=== PATIENT | female | born 1970 | race Caucasian/White ===

== ENCOUNTER 2018-04-18 07:56 | Inpatient (IN) | payer BC ==
[2018-04-18] MEDS ORDERED: NS 1,000 ML IV ONE (08:12)
[2018-04-18] MEDS ORDERED: METOCLOPRAMIDE 10 MG/2 ML VIAL IVP ONE (08:12)
[2018-04-18] MEDS ORDERED: KETOROLAC 30 MG/1 ML SDV IVP ONE (08:12)
[2018-04-18] MEDS ORDERED: HYDROmorphONE/DILAUDID 2 MG/ML INJ IVP ONE (08:12)
[2018-04-18] MEDS ORDERED: LORazepam 2 MG/ML INJ IVP ONE (08:12)
--- NOTE | 2018-04-18 08:17 | EDPHY ---
H & P Stated Complaint: Left sided migraine for 12 hours. Time Seen by Provider: 04/18/18 08:09 HPI/ROS: CHIEF COMPLAINT: Headache HISTORY OF PRESENT ILLNESS: The patient is a 47-year-old female who complains of left frontal headache. She states that it is severe. It is very hard to get a history from her because she is hyperventilating and panicking. She will only whisper to me that it hurts "right here" while she points to her left eyebrow. She does have photophobia. She denies history of frequent headaches or migraines. She denies trauma. She denies recent fever illness. No cancer history. She states that she felt fine yesterday before the headache began. It was gradual onset not thunderclap. No focal weakness or deficits. She felt nauseous and vomited soon after began. No neck pain. Severity: Severe Modifying factors: None REVIEW OF SYSTEMS: Constitutional: denies: chills, fever, recent illness, recent injury EENTM: denies: blurred vision, double vision, nose congestion Respiratory: denies: cough, shortness of breath Cardiac: denies: chest pain, irregular heart rate, lightheadedness, palpitations Gastrointestinal/Abdominal: denies: abdominal pain, diarrhea, nausea, vomiting, blood streaked stools Genitourinary: denies: dysuria, frequency, hematuria, pain Musculoskeletal: denies: joint pain, muscle pain Skin: denies: lesions, rash, jaundice, bruising Neurological: See HPI denies: numbness, paresthesia, tingling, dizziness, weakness Hematologic/Lymphatic: denies: blood clots, easy bleeding, easy bruising Immunologic/allergic: denies: HIV/AIDS, transplant 10 systems reviewed and negative except as noted EXAM: GENERAL: Rolling around in the bed, curled up in a ball, severe distress, hyperventilating HEAD: Atraumatic, normocephalic. EYES: Pupils equal round and reactive to light, extraocular movements intact, sclera anicteric, conjunctiva are normal. ENT: TMs normal, nares patent, oropharynx clear without exudates. Moist mucous membranes. NECK: Normal range of motion, supple without lymphadenopathy or JVD. LUNGS: Breath sounds clear to auscultation bilaterally and equal. No wheezes rales or rhonchi. HEART: Regular rate and rhythm without murmurs, rubs or gallops. ABDOMEN: Soft, nontender, normoactive bowel sounds. No guarding, no rebound. No masses appreciated. BACK: No CVA tenderness, no spinal tenderness, step-offs or deformities EXTREMITIES: Normal range of motion, no pitting or edema. No clubbing or cyanosis. NEUROLOGICAL: Cranial nerves II through XII grossly intact. Normal speech, normal gait. 5/5 strength, normal movement in all extremities, normal sensation , normal reflexes PSYCH: Appears extremely anxious SKIN: Warm, dry, normal turgor, no visible rashes or lesions. Source: Patient Exam Limitations: No limitations - Personal History Current Tetanus Diphtheria and Acellular Pertussis (TDAP): Yes - Medical/Surgical History Hx Asthma: No Hx Chronic Respiratory Disease: No Hx Diabetes: No Hx Cardiac Disease: No Hx Renal Disease: No Hx Cirrhosis: No Hx Alcoholism: No Hx HIV/AIDS: No Hx Splenectomy or Spleen Trauma: No Other PMH: Anemia - transfusion apr 2018. Thyroid ca. PCOS. Pancreatitis. - Family History Significant Family History: No pertinent family hx - Social History Smoking Status: Never smoked Alcohol Use: Sober Drug Use: None Constitutional: Initial Vital Signs Temperature (C) 37 C 04/18/18 07:59 Heart Rate 102 H 04/18/18 07:59 Respiratory Rate 18 04/18/18 07:59 Blood Pressure 137/88 H 04/18/18 07:59 O2 Sat (%) 96 04/18/18 07:59 O2 Delivery Mode Room Air Allergies/Adverse Reactions: Sulfa (Sulfonamide Antibiotics) Allergy (Verified 04/18/18 11:45) Face Swelling Home Medications: Medication Instructions Recorded Cholecalciferol Vit D3 [Vitamin D3 1,000 units PO DAILY 04/18/18 (*)] FLUoxetine [Prozac 20 MG (*)] 40 mg PO HS 04/18/18 Herbals/Supplements -Info Only 1 ea PO DAILY 04/18/18 Levothyroxine [Synthroid 137 mcg 137 mcg PO DAILY06 04/18/18 (*)] Omeprazole 40 mg PO DAILY 04/18/18 valACYclovir [Valtrex (*)] 1,000 mg PO HS 04/18/18 Medical Decision Making - Diagnostics Imaging: Discussed imaging studies w/ scallop shucker Radiologist ED Course/Re-evaluation: 10:00 a.m. the patient is feeling much better. She is much more calm. Have recent labs now that she is not hyperventilating. We discussed her CT results which are obviously concerning. I have ordered MRI and MR a venogram. I spoke with Dr. Baum from Neurosurgery. He will come to evaluate. She denies history of hypertension or trauma. Differential Diagnosis: Partial list of the Differential diagnosis considered include but were not limited to; subarachnoid, migraine, tension headache, tumor and although unlikely based on the history and physical exam, I also considered fracture, trauma, infection. Critical Care Time: Critical care time spent by me, Dr. Ordaz exclusive with this patient was the 45 minutes, exclusive of the PA time exclusive of procedures. The organ system that was at risk was neurologic and I gave medications, fluids, consultation and admission to prevent worsening of the patient's condition - Data Points Laboratory Results: Laboratory Results 04/18/18 08:15 04/18/18 09:30 Medications Given: Hydrocodone Bitart/Acetaminophen ([place] 5/325) 1 - 2 tab PO Q4HRS PRN PRN Reason: Pain, Moderate Able to Take PO Stop: 04/28/18 11:14 Last Admin: 04/19/18 12:30 Dose: 1 tab Hydromorphone HCl (Dilaudid) 0.2 - 0.4 mg IVP Q4HRS PRN PRN Reason: Pain, Severe Unable to Take PO Stop: 04/28/18 11:14 Last Admin: 04/19/18 18:47 Dose: 0.4 mg Potassium Chloride/Sodium Chloride (Ns W/ 20 Kcl/L) 1,000 mls @ 100 mls/hr IV CONT ALEKSANDRA Stop: 10/15/18 11:14 Last Admin: 04/19/18 14:55 Dose: 1,000 mls Ondansetron HCl (Zofran) 4 mg IVP Q4HRS PRN PRN Reason: Nausea/Vomiting, Can't Take PO Stop: 10/15/18 11:14 Last Admin: 04/18/18 18:39 Dose: 4 mg Discontinued Medications Dexamethasone (Decadron Injection) 4 mg IVP Q6HRS ALEKSANDRA Stop: 10/15/18 11:59 Last Admin: 04/18/18 12:30 Dose: 4 mg Diphenhydramine HCl (Benadryl Injection) 25 mg IVP EDNOW ONE Stop: 04/18/18 08:13 Last Admin: 04/18/18 08:42 Dose: 25 mg Hydromorphone HCl (Dilaudid) 1 mg IVP EDNOW ONE Stop: 04/18/18 08:13 Last Admin: 04/18/18 08:41 Dose: 1 mg Sodium Chloride (Ns) 1,000 mls @ 0 mls/hr IV ONCE ONE; Wide Open PRN Reason: Protocol Stop: 04/18/18 08:13 Last Admin: 04/18/18 08:41 Dose: 1,000 mls Levetiracetam (Keppra (Premix)) 100 mls @ 400 mls/hr IV BID [facility] Stop: 10/15/18 11:59 Last Admin: 04/19/18 08:34 Dose: 100 mls Potassium Chloride (Potassium Cl 10 Meq (Premix)) 100 mls @ 100 mls/hr IV Q1H ALEKSANDRA Stop: 04/18/18 17:29 Last Admin: 04/18/18 17:04 Dose: 100 mls Magnesium Sulfate/Dextrose (Magnesium Sulf 1 Gm (Premix)) 100 mls @ 100 mls/hr IV ONCE ONE Stop: 04/18/18 18:40 Last Admin: 04/18/18 19:05 Dose: 100 mls Ketorolac Tromethamine (Toradol) 15 mg IVP EDNOW ONE Stop: 04/18/18 08:13 Last Admin: 04/18/18 08:42 Dose: 15 mg Lorazepam (Ativan Injection) 1 mg IVP EDNOW ONE Stop: 04/18/18 08:13 Last Admin: 04/18/18 08:42 Dose: 1 mg Methylprednisolone Sodium Succinate (Solu-Medrol) 125 mg IVP Q6HRS [facility] Stop: 10/15/18 17:59 Last Admin: 04/19/18 12:30 Dose: 125 mg Metoclopramide HCl (Reglan Injection) 10 mg IVP EDNOW ONE Stop: 04/18/18 08:13 Last Admin: 04/18/18 08:42 Dose: 10 mg Potassium Chloride (Klor-Con) 10 - 40 meq PO ONCE ONE PRN Reason: Protocol Stop: 04/18/18 13:23 Last Admin: 04/18/18 14:05 Dose: Not Given Departure - Departure Disposition: [facility] Acute Clinical Impression: Intracranial hemorrhage Condition: Critical
[2018-04-18 08:28] LABS: PLATELET COUNT 325 10^3/uL (150-400)
[2018-04-18] MEDS ORDERED: IOPAMIDOL (ISOVUE 370) 100 ML BTL IV ONE (09:00)
[2018-04-18] MEDS ORDERED: HYDROCODONE/APAP 5/325 TAB PO PRN (11:15)
[2018-04-18] MEDS ORDERED: ONDANSETRON DISINTEGRATING 4 MG TAB PO PRN (11:15)
[2018-04-18] MEDS ORDERED: ACETAMINOPHEN 325 MG TAB PO PRN (11:15)
[2018-04-18] MEDS ORDERED: DEXAMETHASONE 4 MG/ML VIAL IVP SCH (12:00)
[2018-04-18] MEDS ORDERED: PROTOCOL POTASSIUM 1 DOSE MISC PRN (12:45)
[2018-04-18] MEDS ORDERED: PROTOCOL MAGNESIUM 1 DOSE IV PRN (12:45)
--- NOTE | 2018-04-18 12:45 | PDGENHP ---
History and Physical - Chief Complaint severe headache - History of Present Illness 47 yo female with h/o thyroid cancer presents to ED with severe frontal headache. She awoke with increased headache pain and it gradually got worse, now severe and localized to the left frontal region, just above her left eye. She denies vision changes or ptosis. No nausea or vomiting. No focal weakness. No fevers or chills. No weight loss. No rash. In the ED, she presented in marked distress and received IV ativan and IV dilaudid. Her pain is improved, but she is having a hard time focusing and articulating herself, likely side effects from IV meds. CT head showed intraparenchymal and SAH in multiple areas. MRI/MRA was negative for enhancing lesions or thrombosis. Neurosurgery consult was obtained. She'll be admitted to the ICU for further management. History Information - Allergies/Home Medication List Allergies/Adverse Reactions: Sulfa (Sulfonamide Antibiotics) Allergy (Verified 04/18/18 11:45) Face Swelling Home Medications: Cholecalciferol Vit D3 [Vitamin D3 (*)] 1,000 units PO DAILY 04/18/18 [Last Taken Unknown] FLUoxetine [Prozac 20 MG (*)] 40 mg PO HS 04/18/18 [Last Taken Unknown] Herbals/Supplements -Info Only 1 ea PO DAILY 04/18/18 [Last Taken Unknown] Levothyroxine [Synthroid 137 mcg (*)] 137 mcg PO DAILY06 04/18/18 [Last Taken Unknown] Omeprazole 40 mg PO DAILY 04/18/18 [Last Taken Unknown] valACYclovir [Valtrex (*)] 1,000 mg PO HS 04/18/18 [Last Taken Unknown] I have personally reviewed and updated: family history, medical history, social history, surgical history - Past Medical History Additional medical history: Anemia s/p transfusion 04/2018. PCOS. Papillary thyroid cancer. h/o pancreatitis - Surgical History Reports: no pertinent surgical hx - Family History Additional family history: Dad with CAD, CABG. Paternal GF had multiple myeloma - Social History Smoking Status: Never smoked Alcohol Use: Sober Drug Use: None Additional social history: Lives independently Review of Systems Review of Systems: ROS: 10pt was reviewed & negative except for what was stated in HPI & below Physical Exam Physical Exam: Temp Pulse Resp BP Pulse Ox 36.8 C 85 18 115/62 94 04/18/18 12:30 04/18/18 12:30 04/18/18 12:30 04/18/18 12:30 04/18/18 12:30 Constitutional: no apparent distress Eyes: PERRL Ears, Nose, Mouth, Throat: moist mucous membranes Cardiovascular: regular rate and rhythym Respiratory: no respiratory distress, clear to auscultation Gastrointestinal: normoactive bowel sounds, soft, non-tender abdomen Skin: warm Musculoskeletal: full muscle strength Neurologic: AAOx3 Psychiatric: interacting appropriately, anxious Lab Data & Imaging Review 04/18/18 10:55 04/18/18 09:30 WBC 13.27 10^3/uL (3.80-9.50) H 04/18/18 08:15 RBC 5.00 10^6/uL (4.18-5.33) 04/18/18 08:15 Hgb 15.1 g/dL (12.6-16.3) 04/18/18 08:15 Hct 43.5 % (38.0-47.0) 04/18/18 08:15 MCV 87.0 fL (81.5-99.8) 04/18/18 08:15 MCH 30.2 pg (27.9-34.1) 04/18/18 08:15 MCHC 34.7 g/dL (32.4-36.7) 04/18/18 08:15 RDW 13.2 % (11.5-15.2) 04/18/18 08:15 Plt Count 325 10^3/uL (150-400) 04/18/18 08:15 MPV 9.1 fL (8.7-11.7) 04/18/18 08:15 Neut % (Auto) 83.8 % (39.3-74.2) H 04/18/18 08:15 Lymph % (Auto) 11.5 % (15.0-45.0) L 04/18/18 08:15 [place] % (Auto) 4.2 % (4.5-13.0) L 04/18/18 08:15 Eos % (Auto) 0.0 % (0.6-7.6) L 04/18/18 08:15 Baso % (Auto) 0.2 % (0.3-1.7) L 04/18/18 08:15 Nucleat RBC Rel Count 0.0 % (0.0-0.2) 04/18/18 08:15 Absolute Neuts (auto) 11.12 10^3/uL (1.70-6.50) H 04/18/18 08:15 Absolute Lymphs (auto) 1.53 10^3/uL (1.00-3.00) 04/18/18 08:15 Absolute Monos (auto) 0.56 10^3/uL (0.30-0.80) 04/18/18 08:15 Absolute Eos (auto) 0.00 10^3/uL (0.03-0.40) L 04/18/18 08:15 Absolute Basos (auto) 0.02 10^3/uL (0.02-0.10) 04/18/18 08:15 Absolute Nucleated RBC 0.00 10^3/uL (0-0.01) 04/18/18 08:15 Immature Gran % 0.3 % (0.0-1.1) 04/18/18 08:15 Immature Gran # 0.04 10^3/uL (0.00-0.10) 04/18/18 08:15 Sodium 139 mEq/L (135-145) 04/18/18 09:30 Potassium 2.8 mEq/L (3.5-5.2) L 04/18/18 09:30 Chloride 109 mEq/L (97-110) 04/18/18 09:30 Carbon Dioxide 21 mEq/l (22-31) L 04/18/18 09:30 Anion Gap 9 mEq/L (6-14) 04/18/18 09:30 BUN 10 mg/dL (7-23) 04/18/18 09:30 Creatinine 0.4 mg/dL (0.6-1.0) L 04/18/18 09:30 Estimated GFR > 60 04/18/18 09:30 Glucose 105 mg/dL (70-100) H 04/18/18 09:30 Calcium 7.6 mg/dL (8.5-10.4) L 04/18/18 09:30 Total Bilirubin 0.7 mg/dL (0.1-1.4) 04/18/18 09:30 AST 187 IU/L (14-46) H 04/18/18 09:30 ALT 124 IU/L (9-52) H 04/18/18 09:30 Alkaline Phosphatase 105 IU/L (38-126) 04/18/18 09:30 Total Protein 5.7 g/dL (6.3-8.2) L 04/18/18 09:30 Albumin 3.3 g/dL (3.5-5.0) L 04/18/18 09:30 Beta HCG, Qual NEGATIVE 04/18/18 08:15 Assessment & Plan Assessment: Intracranial hemorrhage (Acute) - CT head showed L occipital intraperenchymal hemorrhage, multiple foci of SAH. CTA with narrowing suspicious for vasculitis. Discussed with neurosurgery team, Dr. Moreira will evaluate. No emergent surgical intervention planned, no focal neurodeficits. MRI/MRA without enhancing lesions or e/o thrombosis. -Admit to ICU for frequent neurochecks, seizure precautions -neurosurg likely to perform formal angiography in next 1-2 days -start Keppra for sz pplx Possible AIRCRAFT MAINTENANCE DIRECTOR vasculitis (Primary angiitis of AIRCRAFT MAINTENANCE DIRECTOR) - note elevated LFT's, normal renal function, no rash -send ANCA panel, VINCE, complement, HIV, esr, crp, spep -start high dose solumedrol -consider LP to evaluate for infectious causes (?VZV, CMV, etc), defer to neurology -neurology consulted, Dr. Multani will see pt, appreciate assistance -consider rheum consult Elevated LFT's - send Hepatitis studies and trend Hypokalemia - check Mag and replace per protocol Thyroid cancer - now on Levothyroxine -cont home meds once med rec completed Anemia - unclear hx, supposedly she recently had a blood transfusion, though has normal h&h upon arrival here DVT PPLX - defer pharm with ICH, SCD's Full code Dispo - admit to inpt, ICU status, anticipate >48 hrs hospitalization for ongoing management of ICH and further workup. 60 min crit care time and coordination of care with neurology, neurosurgery
[2018-04-18] MEDS: levETIRAcetam 500MG/NACL 100 ML IV SCH ×2 (13:16→20:45)
[2018-04-18] MEDS: NS W/ 20 KCl/L 1,000 ML IV SCH (13:16)
[2018-04-18] MEDS ORDERED: POTASSIUM CL 10 MEQ TAB PO ONE (13:22)
[2018-04-18] MEDS: POTASSIUM Cl (KCl) 100 ML IV SCH ×4 (14:04→17:04)
--- NOTE | 2018-04-18 14:15 | PDMN ---
Medical Necessity Medical necessity: MCG: M79 SAH non surgical- 4 days - acute SAH: 47 yr old female pt presents with severe BUTCHER MRI shows L occipital intraparenchymal hemorrhage and L cerebral SAH neuro consult pend. PMH thyroid Ca., anemia/ hx pancreatitis. anticipate > 2 MN ongoing med nec care , further monitoring, eval and tx needed
--- NOTE | 2018-04-18 14:46 | GCON ---
SECURITY THREAT ANALYST CONSULTATION REASON FOR ADMISSION: Subarachnoid hemorrhage. HISTORY OF PRESENT ILLNESS: The patient is a 47-year-old white female with a past medical history in cluding thyroid cancer. She presented to the emergency room with complaints of severe headaches. Thi s was primarily in the frontal area. She states it began and worsened in severity. There was no angelo dence of seizure or tremors. There was no change in her vision. CT scan of the brain revealed intra parenchymal and subarachnoid hemorrhages. In discussion with the patient, she is quite difficult to understand and is having trouble with verbal skills. She complains of a headache. Denies any blurre d vision or double vision. There is no cough or productive sputum. She denies any fever or night sw eats. REVIEW OF SYSTEMS: 10-point review of systems is performed and negative except for what is listed in HPI. ALLERGIES: To sulfa. PAST MEDICAL HISTORY: Again, significant for thyroid cancer, anemia, and pancreatitis. FAMILY HISTORY: Noncontributory. SOCIAL HISTORY: No history of tobacco use. No history of alcohol use, though she does use marijuana . She has lived in [place] for 4 months. Was originally from [place]. PHYSICAL EXAM: VITAL SIGNS: Blood pressure is 115/62, pulse 85, respirations 18, temperature 36.8, oxygen saturation 94% on room air. GENERAL: She is a well-developed, well-nourished 47-year-old whi te female who is resting comfortably in no acute distress. HEENT: Eyes are PERRLA, EOMI. Throat shows no erythema or tonsillar hypertrophy. NECK: Supple. N o cervical adenopathy. HEART: Regular rate and rhythm without murmurs, rubs, or gallops. LUNGS: C lear to auscultation. No wheeze or rhonchi. ABDOMEN: Soft, nontender. Bowel sounds present in all 4 quadrants. EXTREMITIES: No clubbing, cyanosis, or edema. LABORATORIES: White count is 13.2, hemoglobin 15, hematocrit 43. Platelet count is 325. Sodium 139 , potassium 3.8, chloride 109, CO2 21, BUN 10, creatinine 0.4. Glucose is 105. AST is elevated at 1 87. ALT is elevated at 124. IMAGING DATA: CT scan of the brain revealed a left occipital intraparenchymal hemorrhage. There is parietal, occipital, and temporal subarachnoid hemorrhages. Brain CTA reveals narrowing of the multi ple [place] vessels with focal right middle cerebral artery narrowing. There is no evidence of superior sagittal sinus thrombosis. Brain MRI again reveals left occipital intraparenchymal hemo rrhage, left cerebral subarachnoid hemorrhages. There is a hypoplastic left transverse sinus. No ev idence of thrombosis. Brain MRA reveals a hypoplastic left transverse sigmoid sinus, a right superio r sagittal sinus, and dominant right transverse sinuses without acute thrombosis. IMPRESSION: 1. Subarachnoid hemorrhage. Etiology was unclear, though CTA is suggestive of vasculitis. 2. Hypokalemia. 3. Elevated liver function tests. 4. History of thyroid cancer. 5. Anemia. RECOMMENDATIONS: 1. Agree with neurosurgical consult. 2. Agree with neurology consult. 3. Start Keppra. 4. Aggressive treatment with steroids. Dexamethasone is a good choice. 5. Rheumatologic workup. 6. DVT and PE prophylaxis. 7. Stress ulcer prophylaxis. 8. Consider LP. /[id number]/MODL
--- NOTE | 2018-04-18 15:11 | GCON ---
EMERGENCY ROOM CONSULTATION. CHIEF COMPLAINT: Severe headache. HISTORY OF PRESENT ILLNESS: The patient is a 47-year-old female who presented to the emergency department this morning with a severe frontal headache. She woke up with a horrible headache last night and denies any loss of consciousness. The patient denies any vision changes, nausea, vomiting or any focal weakness. CT of the head was performed which showed intraparenchymal and subarachnoid hemorrhage in multiple areas. REVIEW OF SYSTEMS: A 10-point review of systems was performed and negative aside from those mentioned in the HPI. ALLERGIES: Sulfa. HOME MEDICATIONS: Vitamin D3 1000 units p.o. daily, Prozac 40 mg p.o. at bedtime, herbal supplements, levothyroxine 137 mcg p.o. daily, omeprazole 40 mg p.o. daily. Valtrex 1000 mg p.o. at bedtime. PAST MEDICAL HISTORY: 1. Anemia. The patient recently underwent a blood transfusion. 2. PCOS. 3. Papillary thyroid cancer. 4. Pancreatitis. SURGICAL HISTORY: The patient denies any recent surgeries. FAMILY HISTORY: The patient's father had coronary artery disease with a history of coronary artery bypass graft. Paternal grandfather had multiple myeloma. There is no family history of any cerebral aneurysms. SOCIAL HISTORY: The patient has never smoked cigarettes. She does not currently drink alcohol. She denies any illicit drug use. She lives independently with her children. DIAGNOSTICS: Labs: White blood cell count 13.27, hemoglobin 15.1, hematocrit 43.5, platelet count 325. Sodium 139, potassium 2.8, BUN 10, creatinine 0.4, glucose 105, AST 187, ALT 124. Diagnostic imagin. CT of the head performed without contrast earlier this morning at 8:14 a.m. demonstrates a left occipital intraparenchymal hemorrhage with surrounding vasogenic edema and multiple foci of the left frontal, parietal, occipital and temporal subarachnoid hemorrhages. No midline shift or herniation or hydrocephalus. CTA of the head performed this morning at 0817 demonstrates narrowing of multiple [place] vessels, most prominent involving the left middle cerebral artery. Also noted in the right anterior cerebral artery and bilateral proximal posterior cerebral arteries suspicious for vasculitis. 2. More focal right middle cerebral artery narrowing is in the region of small amount of subarachnoid hemorrhage, which may represent superimposed vasospasm. 3. No evidence of aneurysm or AV malformation. 4. Patent superior sagittal sinus and transverse sinus with probable very small left transverse sinus with no evidence of superior sagittal sinus thrombosis. MRI, MRA of the brain was performed this morning at 0955 demonstrates: 1. Hypoplastic left transverse sigmoid sinus. 2. Right superior sagittal sinus and dominant right transverse sinus are patent without acute thrombosis. EXAM: VITAL SIGNS: Blood pressure is 108/50, heart rate is 83, respiratory rate 16, oxygen saturation 95% on room air, temperature is 36.6 degrees Celsius. HEENT: Head is normocephalic and atraumatic. Pupils are equal, round , and reactive to light. Full visual box by confrontation. Ears are patent. RESPIRATORY AND CARDIAC: Deferred. ABDOMEN, GENITOURINARY and RECTAL: Deferred. NEUROLOGIC: The patient is awake and alert, oriented to name, place, date, time, and situation. Memory is intact to immediate, past and current events. Speech no aphasia or dysphonia. Cranial nerves 2-12 are grossly intact. Motor: The patient has 5/5 strength in all muscle groups in bilateral upper and lower extremities to include deltoids, biceps, triceps, brachioradialis, wrist flexion and extensors, track inspecting supervisor intrinsic fingers, iliopsoas , quadriceps, hamstring, plantar flexion, dorsiflexion, EHL testing. Sensation is grossly intact to light touch throughout all dermatomal distributions in bilateral lower extremities. Reflexes, biceps, brachialis, knee jerk are 2+/4. Babinski is negative and Erwin's is negative. The patient received medications just prior to exam but the patient was still able to participate fully. ASSESSMENT/PLAN: Patient is a 47-year-old female who came into the emergency department this morning after experiencing the worst headache of her life last night. Patient did not experience any nausea or vomiting or any focal weaknesses. The patient was found to have subarachnoid hemorrhage in several locations of her brain and a CTA of the head was negative for any aneurysm or AV malformation. MRI MRA of the brain was performed which confirmed a left occipital intraparenchymal hemorrhage and the left cerebral subarachnoid hemorrhages that were seen in the CAT scan, possible vasculitis. The patient is going to be admitted under the medicine service. We recommended starting Keppra 500 mg twice daily. Neurology has been consulted and will wait to see what their recommendations are. Dr. Moreira is aware of this patient as well and may consider doing a 4-vessel angiogram in the next 1-2 days if indicated. The patient was seen and examined by myself and Dr. Santos in the emergency department today, on April 18, 2018, at 11:40 a.m. Please call Neurosurgery with any questions or concerns. /[id number]/MODL MTDD
[2018-04-18 16:08] LABS: HEPATITIS B SURFACE ANTIGEN NEGATIVE (NEGATIVE)
[2018-04-18 16:12] LABS: HEPATITIS B CORE AB IGM NEGATIVE (NEGATIVE)
[2018-04-18 16:23] LABS: HEPATITIS C ANTIBODY TOTAL NEGATIVE (NEGATIVE); HIV TYPE 1 AND 2 NEGATIVE (NEGATIVE)
--- NOTE | 2018-04-18 17:32 | ASMTCMCOM ---
CM Note CM Note Notes: Pt presented to the ED through triage for a severe left frontal headache since this morning after waking up. 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 Pt is having difficulty articulating or expressive aphasia, using her phone, or completing her thoughts but not sure if this is due to side effects of IV pain meds. Pt's PMH includes: thyroid cancer, pancreatitis, PCOS, anemia (most recent iron transfusion was 2 days ago at [facility]), had a duodenal switch in 2012. Pt's LFTs were elevated and their is question whether pt has Hx of ETOH abuse especially w/hx of pancreatitis. There was also mention of pt having chronic pain issues w/the pancreatitis flares; pt had a chronic pain MD in the past. Pt states she and her children moved to [place] from [place] this past summer/early Fall. Pt was dropped off at the ED by her 16 yr old daughter, Carolina Shahid ([phone]). Pt also has a 13 yr old son, Keith. Pt gave permission for this CM to speak to Carolina but didn't want her medical/status details provided to Carolina at this time; she only wanted Carolina to know that she is being admitted and having further testing done. Pt also states that it is okay for her children to visit her in the hospital if they want to. Spoke w/Carolina and she is aware of pt being admitted. Carolina says she wouldn't be able to visit pt today because she has to work tonight from 3:45p- 9p at [employer] ([phone]). Pt states she would not want Carolina to miss work. Carolina states she will try to keep her phone close while at work but that it is okay to call [employer] and ask for her if there is something urgent. Carolina states she would like to be updated. Pt states she has two cousins Mick and Ewa Mcbride ([phone]) who live in [place]. Pt gave permission to contact Ewa and see if she can stay w/Carolina and Keith tonevaristo or if they could stay with them. This CM called Ewa and left a voicemail. Pt did say that "if need be, Ewa can be charge." This CM attempted to discuss if she would like to appoint Ewa MDPOA or Proxy at this time but pt was unable/unwilling to give a clear designation/answer or have this conversation at this time, stating "that's unnecessary. this is silly. but if need be, Ewa should be in charge." Pt also states her best friend, Marian (c:[phone], w: [phone]) lives in [place] and wanted her contacted. Spoke w/Marian and updated her on pt's admission and status. Marian mentioned that the pt's children have a therapist locally and might be a good additional support. Pt specifically said she does not want her mother or father (who live in [place]) to be contacted or given any info at this time. But pt called her mother and updated her; pt's mother might be flying into town tomorrow. Pt recently established primary care at [facility] and was seen by Dr Lisandro Stinson. Spoke w/Marian Moeller RN Radar Systems Engineer to see if pt had listed any emergency contacts or completes any Advance Directives, MDPOA etc. and pt had provided any contacts. Neurosurgery likely to perform formal angio tomorrow or the next day. Neurology consulting for possibility of pt having had a seizure. Considering a rheumatology consult. Exact DC needs TBD. CM to follow. Date Signed: 04/18/2018 05:32 PM Electronically Signed By:Nalini Higginbotham RN
[2018-04-18] MEDS ORDERED: MAGNESIUM SULF 1 GM/DEXTROSE 100 ML IV ONE (17:41)
[2018-04-18] MEDS: HYDROmorphONE/DILAUDID 1 MG/ML INJ IVP PRN ×2 (18:32→20:23)
[2018-04-18] MEDS: methylPREDNISolone SOD SUCC 125 MG/2 ML VIAL IVP SCH (18:32)
[2018-04-18] MEDS: ONDANSETRON 4 MG/2 ML VIAL IVP PRN (18:39)
[2018-04-19] MEDS: methylPREDNISolone SOD SUCC 125 MG/2 ML VIAL IVP SCH ×3 (00:16→12:30)
--- NOTE | 2018-04-19 05:24 | GCON ---
NEUROLOGIC CONSULTATION REFERRING PHYSICIAN: Ceci Morrison MD HISTORY: The patient is a 47-year-old woman who is presenting to the hospital the day after onset of acute headache with nausea and vomiting. She said she had gone to her boyfriend's house yesterday e vening and had smoked some marijuana which she typically does perhaps twice a week. She had some sex ual activity but did not report any acute headache with sex. Driving home, she says that she experie nced a terrible headache on the left side rather abruptly. She had nausea and vomiting and has never had that happen before. She drove herself home and tried to rest, but by this morning, she was not getting better so she came to the emergency room for acute evaluation. In the emergency room, she un derwent head CT, MRI, MR angiogram of the head and CT angiogram of the head. She had evidence of mil d left subarachnoid hemorrhage mainly in the left middle cerebral artery region and left occipital ar ea of a slightly larger hemorrhage, maximum 1 cm in diameter, but no evidence of stroke on the diffus ion-weighted images. There are changes on the angiogram of vasoconstriction. There are multiple ves sels that include left middle cerebral artery and right anterior cerebral artery and bilateral proxim al posterior cerebral arteries. There is some narrowing of the right middle cerebral artery area. I t does not appear that there is any venous sinus thrombosis but just some anatomically smaller left t ransverse sinus, but patent superior sagittal sinus, transverse sinus. Her headache was severe but now is down to about 2/10 she says. She notices a little trouble with wo rd finding but not focal numbness or weakness. She is not having nausea or vomiting now. She has ne ez had anything like this before. Within the last 3 years, she had some rheumatologic evaluation ba in [place] and was told she might have had some borderline lupus changes, but we do not know tho se details. Sixteen years ago, she had HELLP syndrome during her . PAST MEDICAL HISTORY: Iron-deficiency anemia for which she gets iron transfusions and did get a puga sfusion 5 days ago. However, she has had this in the past without a problem. History of papillary t hyroid cancer, history of pancreatitis. SOCIAL HISTORY: She does not drink alcohol. She notes the marijuana use about twice per week with a little increased use lately and has smoked for several years. She denies any other illicit drug use . She lives independently but does have children and reports having a significant other. FAMILY HISTORY: Some stroke late in life with her mother. ALLERGIES: Her allergy is to sulfa. MEDICATIONS: Home medicines: Valtrex, omeprazole, Synthroid, Prozac, vitamin D. Here in the hospit al, she has been started on some methylprednisolone 125 mg every 6 hours, p.r.n. [place] or Dilaudid, K eppra 500 mg b.i.d. REVIEW OF SYSTEMS: Unremarkable except for that noted above. PHYSICAL EXAMINATION: VITAL SIGNS: The blood pressure is 115/67, pulse of 89, respirations 19, temp erature 37.5. GENERAL: She is lying in the bed, mildly uncomfortable but able to communicate effect ively. NECK: She has a supple neck. No significant pain in the head or neck by head rotation or fl exion. SKIN: No skin rash. HEENT: Eyes are clear. Oropharynx benign. NEUROLOGIC: Mildly lethar gic but able to arouse and answer questions appropriately and is oriented and understands the general situation. Pupils are 2 mm and reactive. Extraocular movements are intact. Normal facial sensatio n and strength. Occasionally, she had some word-finding difficulties but mild. Motor exam: Normal muscle bulk and tone with 5/5 strength and no abnormal movements. Sensation is preserved for tempera ture and light touch. Reflexes are 2+ and symmetric. IMAGING STUDIES: As outlined above. LABORATORY STUDIES: Sedimentation rate is 2. White count is 13. C-reactive protein less than 5. P rotein electrophoresis is pending. Total protein is mildly low. Electrolytes: Potassium of 2.8, bi carbonate 21, glucose 105, calcium 7.6, AST of 187, ALT 124. Several antibodies are pending like VINCE and complement levels. Serologies negative for hepatitis and HIV. IMPRESSION: Total unit time: 70 minutes. The patient has some subarachnoid bleeding and vasoconstr iction in multiple vessels as outlined, but this is unlikely an aneurysmal subarachnoid hemorrhage. It is nontraumatic. It occurred without a clear-cut precipitating cause. My top differential consid eration in the short term would be reversible cerebral vasoconstrictive syndrome. Cerebral vasculiti s is a differential consideration on a primary or secondary basis, but we lack any definitive markers so far. She made mention of possible lupus concerns in the last 3 years with a rheumatology consult , but we do not otherwise have specific evidence to suggest that. It is unclear why she has the elev ation of liver enzymes. Normal sedimentation rate and C-reactive protein are reassuring but do not e xclude definitively vasculitis. This syndrome has been associated with antidepressants which she vimal es as well as marijuana use, but these links are very loose at this point and simply mentioned in the literature as considerations. It is reasonable in the short-term to continue the steroid for the po ssibility of a vasculitic syndrome, but we will try to discontinue that fairly quickly if she is clin ically continuing to do well to be sure it is actually needed or not. I feel it is appropriate to ho ld off on any other specific medication interventions, and generally, literature does not support str jimmy evidence for use of calcium channel blockers, although it has been done in the past. I explained all of this to her in a general sense and the typically good prognosis, although it is quite variabl e for given individuals and something we will monitor. I will continue to follow along with you. I think it is reasonable in the short-term also to not do the catheter-based angiogram, but we will con nuclear weapons specialist that and continue to confer with Neurosurgery as appropriate. /[id number]/MODL
[2018-04-19 06:19] LABS: PLATELET COUNT 270 10^3/uL (150-400)
--- NOTE | 2018-04-19 07:31 | NEUSURGPN ---
Assessment/Plan: Assessment: 47 yo female with presentation to the ED with worst BUTCHER of life. Pt with SAH in the sulci, CTA was neg for aneurysm Plan: -SAH-neg CTA -Dr Moreira saw pt as well and we will defer to Neurology for the need to get an angio -Dr Moreira could do angio tomorrow if needed -will wait for Neurology to see and can speak with Dr Moreira to finalize plan -call with any questions or concerns -PT/OT/ST -pt understands and agrees Subjective: Awake and alert. NAD. No new events overnight. No neck/chest/abd or gu complaints. No f/c/n/v/d. Objective: AAO x 3, PERRLA/EOMI no droop CN 2-12 grossly intact +lt touch 5/5 BUE/BLE = Neuro Check Frequency: as ordered Urinary Catheter in Place: No - Physician Discussed Patient with Dr.: Moreira Patient Seen by Dr.: Moreira Neurosurgery Physical Exam - Vitals, I&O, Labs I and O 04/18/18 04/19/18 04/20/18 05:59 05:59 05:59 Intake Total 2545 Output Total 250 Balance 2295 Weight 50 kg Intake: Oral (ml) 120 IV Intake (ml) 655 IV Infused (ml) 1770 NS W/ 20 KCl/L 1,000 ml @ 770 100 mls/hr IV CONT ALEKSANDRA Rx#:[id number] Output: Urine (ml) 250 Bedpan 250 Other: Number of Voids Toilet 2 Number of Stools Toilet 1 Vital Signs Temp Pulse Resp BP Pulse Ox 36.8 C 89 27 H 119/74 95 04/18/18 22:00 04/19/18 06:00 04/19/18 06:00 04/19/18 06:00 04/19/18 06:00 Laboratory Results 04/19/18 05:50 04/19/18 05:50 ICD10 Worksheet Patient Problems: Problems Problem Status Onset Intracranial hemorrhage Acute
--- NOTE | 2018-04-19 08:20 | NEUROPROG ---
Assessment: Total unit time 25 min. At this point, the probability of aneurysmal subarachnoid hemorrhage is considered low enough that I am not recommending catheter based angiogram. I think she probably has reversible cerebral vasoconstrictive syndrome more likely than a primary a vasculitic syndrome or secondary vasculitic syndrome, although a few more studies are pending. Her liver enzymes have dramatically increased overnight. Both the AST and ALT year over 1000 now. Alkaline phosphatase is elevated. She says that she has a history of some type of chronic liver condition for which she had a biopsy several years ago and was told that elevation of liver enzymes certainly can occur and she has had elevations in the past which responded to being NPO and she has also had elevated pancreatic enzymes in the past she says. However, this needs to be thoroughly evaluated again to be sure nothing more serious is happening and I will defer to Medicine for decisions on this workup and treatment. She is receiving methylprednisolone for the possibility of a primary vasculitic condition, which I am comfortable continuing for now but we will continue to monitor. The natural history of this vasoconstrictive syndrome is usually resolution with limited evidence that specific interventions are necessary other than monitoring and following up. I will probably plan to repeat a CT angiogram tomorrow. Subjective: The patient is reporting that she is feeling better still in terms of less headache and more alert and word-finding, although still present, seems to be getting a little bit better. She does not complain of focal neurologic symptoms like numbness or weakness. Objective: Vital Signs Temp Pulse Resp BP Pulse Ox 36.8 C 89 27 H 119/74 95 04/18/18 22:00 04/19/18 06:00 04/19/18 06:00 04/19/18 06:00 04/19/18 06:00 Laboratory Results 04/19/18 05:50 04/19/18 05:50 04/18/18 04/19/18 04/20/18 05:59 05:59 05:59 Intake Total 2545 Output Total 250 Balance 2295 Laboratory Tests 04/19/18 05:50 AST 1051 H ALT 1471 H Alkaline Phosphatase 216 H She is alert and attentive and oriented. Otherwise unremarkable exam. Allergies/Adverse Reactions: Sulfa (Sulfonamide Antibiotics) Allergy (Verified 04/18/18 11:45) Face Swelling
[2018-04-19] MEDS: HYDROmorphONE/DILAUDID 1 MG/ML INJ IVP PRN ×6 (08:23→22:57)
[2018-04-19] MEDS: NS W/ 20 KCl/L 1,000 ML IV SCH ×3 (08:26→22:00)
[2018-04-19] MEDS: levETIRAcetam 500MG/NACL 100 ML IV SCH (08:34)
--- NOTE | 2018-04-19 08:55 | PDINTPN ---
Child Care Coordinator Progress Note Assessment/Plan: Assessment/plan: * Subarachnoid hemorrhage-possible vasculitis -continue high-dose steroids -rheumatologic workup pending * Elevated liver function tests-markedly elevated from yesterday. Patient states she has had a recent liver biopsy at [facility] -will obtain medical records as well as path report -agree with abdominal ultrasound * Encephalopathy-markedly improved. Patient conversant. Awake and alert and oriented. * History of thyroid cancer * VTE prophylaxis * Stress ulcer prophylaxis * PT/OT * Speech to see Subjective: Looks and feels markedly improved. Speech back to normal and no longer garbled. Complains of mild headache. Objective: Vital Signs Temp Pulse Resp BP Pulse Ox 36.8 C 89 27 H 119/74 95 04/18/18 22:00 04/19/18 06:00 04/19/18 06:00 04/19/18 06:00 04/19/18 06:00 Laboratory Results 04/19/18 05:50 04/19/18 05:50 04/18/18 04/19/18 04/20/18 05:59 05:59 05:59 Intake Total 2545 Output Total 250 Balance 2295 - Time Spent With Patient Time Spent With Patient: 35 min of time spent with patient, over 1/2 involved coordination of care or counseling. Case discussed with Nursing and hospitalist Physical Exam - Physical Exam General Appearance: WD/WN, alert, no apparent distress EENT: PERRL/EOMI Neck: non-tender, full range of motion, supple, normal inspection Respiratory: chest non-tender, lungs clear, normal breath sounds Cardiac/Chest: normal peripheral pulses, regular rate, rhythm Peripheral Pulses: 2+: carotid (R), carotid (L), femoral (R), femoral (L), dorsalis-pedis (R), dorsalis-pedis (L) Abdomen: normal bowel sounds, non-tender, soft Pelvic Exam: deferred Rectal: deferred Skin: normal color, warm/dry Extremities: normal range of motion, non-tender, normal inspection, normal capillary refill Neuro/Psych: alert, normal mood/affect, oriented x 3 ICD10 Worksheet Patient Problems: Problems Problem Status Onset Intracranial hemorrhage Acute
--- NOTE | 2018-04-19 08:59 | HOSPPROG ---
Hospitalist Progress Note Assessment/Plan: #Left occipital IPH/left cerebral SAH: Dr. Multani evaluated. Thinks reversible cerebral vasoconstriction rather than vasculitic process. -stopped steroids. Had negative vasculitic panel recently per my review OSH labs ; still awaiting full reports #Acute hepatitis: >1000 today. Steroids? She reports prior liver biopsy -personally reviewed prior labs in her [facility] records: - AST/ALT >1000 Jun 2017. -Negative: complements, iron studies. 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 Negative hep serologies -awaiting further notes from [place] -check EBV, CMV, TSH #h/o pancreatitis: lipase 800. No e/o pancreatitis on US #PCOS #h/o papillary thyroid cancer: TSH pending Subjective: headache this morning. Mild lower abdominal pain Objective: Vital Signs Temp Pulse Resp BP Pulse Ox 36.8 C 89 27 H 119/74 95 04/18/18 22:00 04/19/18 06:00 04/19/18 06:00 04/19/18 06:00 04/19/18 06:00 Laboratory Results 04/19/18 05:50 04/19/18 05:50 04/18/18 04/19/18 04/20/18 05:59 05:59 05:59 Intake Total 2545 Output Total 250 Balance 2295 - Physical Exam Constitutional: uncomfortable Eyes: PERRL Ears, Nose, Mouth, Throat: moist mucous membranes Cardiovascular: regular rate and rhythym Respiratory: no respiratory distress Gastrointestinal: normoactive bowel sounds ICD10 Worksheet Patient Problems: Problems Problem Status Onset Intracranial hemorrhage Acute
[2018-04-19] MEDS: levETIRAcetam 500 MG TAB PO SCH (20:19)
[2018-04-20] MEDS: HYDROmorphONE/DILAUDID 1 MG/ML INJ IVP PRN ×9 (01:01→22:27)
[2018-04-20] MEDS: NS W/ 20 KCl/L 1,000 ML IV SCH ×2 (04:28→14:41)
--- NOTE | 2018-04-20 08:26 | NEUROPROG ---
Assessment: Total unit time 25 min. At this point, the probability of aneurysmal subarachnoid hemorrhage is considered low enough that I am not recommending catheter based angiogram. I think she probably has reversible cerebral vasoconstrictive syndrome more likely than a primary a vasculitic syndrome or secondary vasculitic syndrome, although a few more studies are pending. Her liver enzymes have dramatically increased overnight. Both the AST and ALT year over 1000 now. Alkaline phosphatase is elevated. She says that she has a history of some type of chronic liver condition for which she had a biopsy several years ago and was told that elevation of liver enzymes certainly can occur and she has had elevations in the past which responded to being NPO and she has also had elevated pancreatic enzymes in the past she says. However, this needs to be thoroughly evaluated again to be sure nothing more serious is happening and I will defer to Medicine for decisions on this workup and treatment. She is receiving methylprednisolone for the possibility of a primary vasculitic condition, which I am comfortable continuing for now but we will continue to monitor. The natural history of this vasoconstrictive syndrome is usually resolution with limited evidence that specific interventions are necessary other than monitoring and following up. I will probably plan to repeat a CT angiogram tomorrow. 04/20/18: 25 min unit time. The patient has a vasculopathy syndrome with consistent improvement and unexplained, but not new phenomenon, of elevated liver enzymes and pancreatic enzymes. She is also curious about whether or estrogen and progesterone have anything to do with this, but I told her I would defer to Medicine service regarding that issue. I do not think that is part of the problem. Because she is doing better, she is now off steroids. I am going to repeat the CT angiogram of the head and neck and see if this is improving, although clinical improvement may precede the radiographic changes. Subjective: The patient tells me that she has minimal headache at this point but simply some light sensitivity. She has mild abdominal pain. The word-finding difficulties are getting better. Objective: Vital Signs Temp Pulse Resp BP Pulse Ox 37.1 C 57 L 20 103/61 94 04/20/18 07:43 04/20/18 07:43 04/20/18 07:43 04/20/18 07:43 04/20/18 07:43 Laboratory Results 04/19/18 05:50 04/20/18 05:53 04/19/18 04/20/18 04/21/18 05:59 05:59 05:59 Intake Total 2545 4505 Output Total 250 Balance 2295 4505 Normal neurologic exam at this point. Liver enzymes are significantly elevated but down by almost 50% compared to yesterday. Allergies/Adverse Reactions: Sulfa (Sulfonamide Antibiotics) Allergy (Verified 04/18/18 11:45) Face Swelling
[2018-04-20] MEDS: levETIRAcetam 500 MG TAB PO SCH ×2 (08:32→21:52)
[2018-04-20] MEDS ORDERED: IOPAMIDOL (ISOVUE 370) 100 ML BTL IV ONE (08:54)
--- NOTE | 2018-04-20 08:56 | PDINTPN ---
Shredded Filler Cutter Operator Progress Note Assessment/Plan: Assessment/plan: * Subarachnoid hemorrhage-reversible cerebral basal constriction per Neurology -off steroids -rheumatologic workup pending * Elevated liver function tests-markedly elevated from yesterday. Back to normal day -awaiting information from [facility] * Encephalopathy-markedly improved. Patient conversant. Awake and alert and oriented. * History of thyroid cancer * VTE prophylaxis * Stress ulcer prophylaxis * PT/OT * Speech * Disposition-okay for transfer to medical surgical floor Subjective: Complains of headache. Objective: Vital Signs Temp Pulse Resp BP Pulse Ox 37.1 C 57 L 20 103/61 94 04/20/18 07:43 04/20/18 07:43 04/20/18 07:43 04/20/18 07:43 04/20/18 07:43 Laboratory Results 04/19/18 05:50 04/20/18 05:53 04/19/18 04/20/18 04/21/18 05:59 05:59 05:59 Intake Total 2545 4505 Output Total 250 Balance 2295 4505 - Time Spent With Patient Time Spent With Patient: 35 min of time spent with patient, over 1/2 involved with coordination of care or counseling Case discussed with Neurology Physical Exam - Physical Exam General Appearance: alert, mild distress EENT: PERRL/EOMI, normal ENT inspection Neck: non-tender, full range of motion Respiratory: chest non-tender, lungs clear, normal breath sounds Cardiac/Chest: normal peripheral pulses, regular rate, rhythm Peripheral Pulses: 2+: carotid (R), carotid (L), femoral (R), femoral (L), dorsalis-pedis (R), dorsalis-pedis (L) Abdomen: normal bowel sounds, non-tender, soft Pelvic Exam: deferred Rectal: deferred Skin: normal color, warm/dry Extremities: normal range of motion, non-tender, normal inspection, normal capillary refill Neuro/Psych: no motor/sensory deficits, alert, normal mood/affect, oriented x 3 ICD10 Worksheet Patient Problems: Problems Problem Status Onset Intracranial hemorrhage Acute
[2018-04-20] MEDS: ONDANSETRON 4 MG/2 ML VIAL IVP PRN (09:36)
[2018-04-20] MEDS ORDERED: MAGNESIUM SULF 1 GM/DEXTROSE 100 ML IV ONE (10:31)
--- NOTE | 2018-04-20 13:53 | HOSPPROG ---
Hospitalist Progress Note Assessment/Plan: #Left occipital IPH/left cerebral SAH: Dr. Multani evaluated. Thinks reversible cerebral vasoconstriction rather than vasculitic process. -improved narrowing of vascular narrowing on CTA today. -Steroids stopped. Negative vasculitis panel, thus far -Keppra BID #Acute hepatitis: markedly improved today. Steroids? She reports prior liver biopsy -[facility] - AST/ALT >1000 Jun 2017. -Negative: complements, iron studies. 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 Negative hep serologies -awaiting further notes from [place] -check EBV, CMV pending #h/o pancreatitis: lipase 800. No e/o pancreatitis on US #PCOS: stable #h/o papillary thyroid cancer: TSH 0.1. Call out to her Health Services Manager, Dr. Chan to determine parameter since level usually kept low after resection #Acute metabolic encephalopathy: resolved #Diet: regular #DVT ppx: SCDs #Disp: inpatient admission for neuro check, LFTs in morning Subjective: headache this morning Objective: Vital Signs Temp Pulse Resp BP Pulse Ox 37.2 C 66 14 103/63 97 04/20/18 11:59 04/20/18 11:59 04/20/18 11:59 04/20/18 11:59 04/20/18 11:59 Laboratory Results 04/19/18 05:50 04/20/18 05:53 04/19/18 04/20/18 04/21/18 05:59 05:59 05:59 Intake Total 2545 4505 Output Total 250 Balance 2295 4505 - Physical Exam Constitutional: uncomfortable (due to BUTCHER) Eyes: PERRL Ears, Nose, Mouth, Throat: moist mucous membranes Cardiovascular: regular rate and rhythym Respiratory: no respiratory distress Gastrointestinal: normoactive bowel sounds Genitourinary: No esquivel in urethra Skin: warm Musculoskeletal: full muscle strength, other (4/5 RUE) Neurologic: CN II-XII Intact Psychiatric: interacting appropriately ICD10 Worksheet Patient Problems: Problems Problem Status Onset Intracranial hemorrhage Acute
[2018-04-20] MEDS ORDERED: FLUoxetine 20 MG CAP PO SCH (21:00)
[2018-04-21] MEDS: HYDROmorphONE/DILAUDID 1 MG/ML INJ IVP PRN ×3 (01:00→09:38)
[2018-04-21 07:49] VITALS: BP 98/67
--- NOTE | 2018-04-21 08:33 | NEUROPROG ---
Assessment: Total unit time 25 min. At this point, the probability of aneurysmal subarachnoid hemorrhage is considered low enough that I am not recommending catheter based angiogram. I think she probably has reversible cerebral vasoconstrictive syndrome more likely than a primary a vasculitic syndrome or secondary vasculitic syndrome, although a few more studies are pending. Her liver enzymes have dramatically increased overnight. Both the AST and ALT year over 1000 now. Alkaline phosphatase is elevated. She says that she has a history of some type of chronic liver condition for which she had a biopsy several years ago and was told that elevation of liver enzymes certainly can occur and she has had elevations in the past which responded to being NPO and she has also had elevated pancreatic enzymes in the past she says. However, this needs to be thoroughly evaluated again to be sure nothing more serious is happening and I will defer to Medicine for decisions on this workup and treatment. She is receiving methylprednisolone for the possibility of a primary vasculitic condition, which I am comfortable continuing for now but we will continue to monitor. The natural history of this vasoconstrictive syndrome is usually resolution with limited evidence that specific interventions are necessary other than monitoring and following up. I will probably plan to repeat a CT angiogram tomorrow. 04/20/18: 25 min unit time. The patient has a vasculopathy syndrome with consistent improvement and unexplained, but not new phenomenon, of elevated liver enzymes and pancreatic enzymes. She is also curious about whether or estrogen and progesterone have anything to do with this, but I told her I would defer to Medicine service regarding that issue. I do not think that is part of the problem. Because she is doing better, she is now off steroids. I am going to repeat the CT angiogram of the head and neck and see if this is improving, although clinical improvement may precede the radiographic changes. 04/21/18: Total unit time 15 min. The patient has clinically stabilized but is not back to normal yet. The CT angiogram has not resolved but is not any worse and is slightly better which is consistent with this syndrome of cerebral vaso constriction. Her liver enzymes are dropping further. From a neurologic standpoint, she could go home and follow up with me as an outpatient as long she is cleared from medical standpoint. Subjective: This morning, the patient says that she is feeling mild headache and some light sensitivity but is able to be someone active during the day. No other new complaints. Objective: Vital Signs Temp Pulse Resp BP Pulse Ox 37.0 C 57 L 17 98/67 L 95 04/21/18 07:46 04/21/18 07:46 04/21/18 07:46 04/21/18 07:46 04/21/18 07:46 Laboratory Results 04/19/18 05:50 04/21/18 05:19 04/20/18 04/21/18 04/22/18 05:59 05:59 05:59 Intake Total 4505 3193 Balance 4505 3193 She is tired but fully able to communicate and follow instructions and makes sense cognitively. No word-finding problems currently. Her repeat CT angiogram was improved slightly compared to the original study. Allergies/Adverse Reactions: Sulfa (Sulfonamide Antibiotics) Allergy (Verified 04/18/18 11:45) Face Swelling
[2018-04-21] MEDS: levETIRAcetam 500 MG TAB PO SCH (08:51)
[2018-04-21] MEDS ORDERED: CHOLECALCIFEROL VIT D3 1,000 UNITS TAB PO SCH (09:00)
[2018-04-21] MEDS ORDERED: Herbals/Supplements -Info Only PO SCH (09:00)
[2018-04-21] MEDS ORDERED: PANTOPRAZOLE SODIUM 40 MG TAB PO SCH (09:00)
[2018-04-21] MEDS ORDERED: MAGNESIUM SULF 1 GM/DEXTROSE 100 ML IV ONE (12:15)
--- NOTE | 2018-04-21 13:06 | GDS ---
DISCHARGE DIAGNOSES: 1. Subarachnoid hemorrhage, reversible cerebral basal vasoconstriction. 2. Transaminitis. 3. Acute metabolic encephalopathy. 4. History of papillary thyroid cancer, status post resection. 5. Polycystic ovarian syndrome. 6. History of elevated liver function tests. CONSULTATIONS: 1. Neurology. 2. Environmental Services Manager. HISTORY OF PRESENT ILLNESS: A 47-year-old female with PCOS, chronic liver issues, who presented to the ED with severe frontal headache. She awoke with this pain, and it gradually got worse, localized to the left frontal region just above her left eye. No vision changes or ptosis. No nausea or vomiting. CT head showed intraparenchymal and SAH in multiple areas. HOSPITAL COURSE BY PROBLEM: 1. Subarachnoid hemorrhage: evaluated by Dr. Multani, consistent with reversible cerebral basal vasoconstriction rather than a vasculitic process. Repeat CTA showed improved vascular narrowing. Was initially on steroids for possible vascular process, but this panel was negative. Keppra not needed per Dr. Multani. 2. Acute hepatitis: AST, ALT spiked greater than 1000 second day of admission. Wonder if it was from high-dose steroids she was receiving. [facility] [place]. She had elevated enzymes greater than 1000 in June 2017. She had previously had negative evaluation , including complements, iron studies and vasculitic studies. Negative evaluation here includes ultrasound with Doppler was negative, had negative EBV , CMV, vasculitic studies. These have improved greatly. She was advised to follow up with her city letter carrier. States that she has had a prior liver biopsy, but I could not obtain those records. 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 3. History of pancreatitis. Lipase was elevated at 800 here. No evidence of necrosis on ultrasound. 4. PCOS, stable. 5. History of papillary thyroid cancer: Her TSH was low at 0.12. Normally this level is kept low after resection. I placed a call to her primary health organisation manager to determine dosage, but I did not hear a call back. I advised patient to call as soon as possible. 6. Acute metabolic encephalopathy: Secondary to medications. 7. Subarachnoid hemorrhage. This is resolved. 8. Deconditioning: Outpatient PT, OT. DISPOSITION: Stable for discharge home with outpatient rehab. NEW MEDICATIONS: Keppra 500 mg b.i.d. FOLLOWUP: 1. Dr. Multani. 2. Her primary care physician for repeat liver enzymes. 3. Gettering Operator. PHYSICAL EXAMINATION: VITAL SIGNS: Today, temperature 37.0. Blood pressure is one-teens over 77, heart rate in the 50s, respiratory rate 16, 95% on room air. She is thin, sitting up in bed, in no acute distress. HEENT: PERRLA. Moist mucous membranes. CV: Regular rate and rhythm. LUNGS: Clear. ABDOMEN : Soft, nontender, nondistended. Positive bowel sounds. : No Saleh. MUSCULOSKELETAL: Moving all 4 extremities. NEURO: 2 through 12 intact. PSYCH : Alert and oriented x3. Time spent on discharge: Greater than 30 minutes coordinating discharge and counseling patient on followup plan. /[id number]/MODL MTDD
== END 2018-04-21 11:30 | disposition home or self-care (01) | DRG 64 ==
LOC: OBSVTOIN 10:55 → F2N 12:54
PROVIDERS: ADMIT Hospitalist; ATTEND Hospitalist
DX: I60.9 Nontraumatic subarachnoid hemorrhage, unspecified (principal); G93.41 Metabolic encephalopathy; I67.841 Reversible cerebrovascular vasoconstriction syndrome; B17.9 Acute viral hepatitis, unspecified; E86.9 Volume depletion, unspecified; R74.0 Nonspecific elevation of levels of transaminase and lactic acid dehydrogenase [LDH]; E28.2 Polycystic ovarian syndrome; D50.9 Iron deficiency anemia, unspecified; Z85.850 Personal history of malignant neoplasm of thyroid
CPT/HCPCS: 84144-90; 84481-90; 86334-90; 86644-90; 86645-90; 86664-90; 86665-90; 86705-90; 92507-GN; 92523-GN; 96374; 97116-GP; 97162-GP; 97165-GO; G0472; J1100; J1170; J1200; J1885; J1953; J2060; J2405; J2765; J2930; J3475; J3480; Q9967

== ENCOUNTER 2018-10-14 18:30 | Emergency (ER) | payer BC | END 2018-10-14 22:19 | disposition home or self-care (01) ==

== ENCOUNTER 2018-10-16 20:10 | Emergency (ER) | payer BC | END 2018-10-16 23:02 | disposition home or self-care (01) ==